=== PATIENT | female | born 1940 | race Caucasian/White ===

== ENCOUNTER 2024-04-10 12:09 | Emergency (ER) | payer MEDICARE, OTHER ==
[2024-04-10 12:56] LABS: BASOPHILS ABSOLUTE AUTO 0.07 K/uL (0.00-0.10); BASOPHILS PERCENT AUTO 0.6 % (0.1-1.3); EOSINOPHILS ABSOLUTE AUTO 0.08 K/uL (0.00-0.40); EOSINOPHILS PERCENT AUTO 0.7 % (0.0-5.4); HEMATOCRIT 35.4 % (34.3-46.0); HEMOGLOBIN 10.9 g/dL (11.2-15.5); IMMATURE GRAN ABSOLUTE AUTO 0.05 K/uL (0.00-0.23); IMMATURE GRAN PERCENT AUTO 0.5 % (0.0-0.7); LYMPHOCYTES ABSOLUTE AUTO 1.14 K/uL (0.8-3.3); LYMPHOCYTES PERCENT AUTO 10.4 % (11.4-47.7); MEAN CORPUSCULAR HEMOGLOBIN 26.3 pg (31.6-35.5); MEAN CORPUSCULAR HGB CONC 30.8 g/dL (31.6-35.5); MEAN CORPUSCULAR VOLUME 85.3 fL (81.4-99.0); MONOCYTES ABSOLUTE AUTO 0.72 K/uL (0.20-0.90); MONOCYTES PERCENT AUTO 6.6 % (3.3-12.6); NEUTROPHILS ABSOLUTE AUTO 8.91 K/uL (1.0-7.6); NEUTROPHILS PERCENT AUTO 81.2 % (40.0-78.1); PLATELET COUNT,PLT 508 K/uL (130-375); RED BLOOD CELL COUNT 4.15 M/uL (3.77-5.24)
[2024-04-10 13:13] LABS: PROTHROMBIN TIME 10.7 sec (9.2-10.6)
[2024-04-10 13:22] LABS: A/G RATIO 0.9 (1.2-2.2); ALANINE AMINOTRANSFERASE,ALT 44 U/L (12-78); ALBUMIN 3.4 g/dL (3.4-5.0); ALKALINE PHOSPHATASE 95 U/L (46-116); ASPARTATE AMNIOTRANSFERASE,AST 40 U/L (15-37); BILIRUBIN TOTAL 0.8 mg/dL (0.2-1.0); BLOOD UREA NITROGEN,BUN 20 mg/dL (7-18); CALCIUM 8.8 mg/dL (8.5-10.1); CARBON DIOXIDE,CO2 25 mmol/L (21-32); CHLORIDE,CL 106 mmol/L (100-108); CREATININE 0.8 mg/dL (0.6-1.0); EST CRCL DRUG DOSING (CG) 42.26 mL/min; ESTIMATED GFR 74 mL/min (>60); GLUCOSE RANDOM 111 mg/dL (74-106); POTASSIUM,K 3.3 mmol/L (3.6-5.2); PRO B-TYPE NATRIUR PEPT,BNPPRO 1895 pg/mL (5-450); SODIUM,NA 142 mmol/L (140-148)
[2024-04-10] MEDS: Furosemide 40 MG/4 ML VIAL IVPUSH ONE (13:22)
[2024-04-10] MEDS: Sodium Chloride 0.9% 500 ML IV ONE (13:22)
[2024-04-10 13:23] LABS: ANION GAP 14.3 mmol/L (5.0-14.0)
[2024-04-10 13:25] LABS: TROPONIN I HIGH SENSITIVITY 1082.7 pg/mL (<=60.3)
[2024-04-10 13:43] LABS: CORONAVIRUS COVID-19 NAA NEGATIVE (NEGATIVE); INFLUENZA A NAA NEGATIVE (NEGATIVE); INFLUENZA B NAA NEGATIVE (NEGATIVE); RESPIRATORY SYNCYTIAL VIR NAA NEGATIVE (NEGATIVE)
[2024-04-10] MEDS: Heparin Sodium 5,000 Units/ML Vial IVPUSH ONE (13:43)
[2024-04-10] MEDS: Aspirin 81 MG Tab.Chew PO ONE (13:43)
[2024-04-10] MEDS: Heparin Sodium/D5W 25,000 UNITS/500 ML BAG IV SCH (13:53)
[2024-04-10 14:26] LABS: APPEARANCE,URINE CLEAR (CLEAR); BILIRUBIN,URINE NEGATIVE (NEGATIVE); COLOR,URINE YELLOW (YELLOW); GLUCOSE,URINE NEGATIVE (NEGATIVE); KETONES,URINE NEGATIVE (NEGATIVE); LEUKOCYTE ESTERASE,URINE NEGATIVE (NEGATIVE); NITRITE,URINE NEGATIVE (NEGATIVE); OCCULT BLOOD,URINE NEGATIVE (NEGATIVE); PROTEIN,URINE NEGATIVE (NEGATIVE); UROBILINOGEN,URINE 0.2 EU/dL (0.2-1.0)
[2024-04-10 14:32] LABS: AMORPHOUS SEDIMENT,URINE NOT SEEN; BACTERIA,URINE FEW; EPITHELIAL CELLS,URINE RARE; MUCUS,URINE NOT SEEN; RBC,URINE 0-5 (0-5); WBC,URINE 0-5 (0-5)
== END 2024-04-10 15:16 ==
LOC: JP.ED 12:09
DX: I21.4 Non-ST elevation (NSTEMI) myocardial infarction (principal); I50.9 Heart failure, unspecified
CPT/HCPCS: 0241U; 36415; 71045; 80053; 81001; 83605; 83880; 84145; 84484; 85025; 85610; 93005; 93010; 96365; 96375; 99285; A9270; J1644; J1940; J7030